=== PATIENT | male | born 1975 | race Caucasian/White ===

== ENCOUNTER 2024-03-29 20:53 | Emergency (ER) | payer OTHER ==
[~2024-03-29] VITALS: Ht 167.6 cm; Wt 83.0 kg
[2024-03-29 21:13] VITALS: BP 173/110; PULSE 88; RESP 18; TEMP 98.5; O2SAT 98
== END 2024-03-30 01:39 | disposition left against medical advice (07) ==
LOC: ER 20:53
DX: I10 Essential (primary) hypertension (principal); Z53.21 Procedure and treatment not carried out due to patient leaving prior to being seen by health care provider